=== PATIENT | female | born 1950 | race Caucasian/White ===

== ENCOUNTER 2017-02-13 08:41 | Observation (INO) | payer MEDICARE, OTHER ==
--- NOTE | 2017-02-13 08:51 | ERNOTE ---
Lower Extremity HPI - Narrative Date of Service: 02/13/17 - General Time Seen by Provider: 02/13/17 08:48 Source: patient Exam Limitations: no limitations - Immun/Allergies/Home Medications Immunizations: IMMUNIZATION HX Immunizations Up to Date Yes History of Influenza Vaccine Yes Hx Pneumococcal Vaccination Yes Allergies/Adverse Reactions: Allergies Allergy/AdvReac Type Severity Reaction Status Date / Time shellfish derived Allergy Verified 02/13/17 08:50 - History of Present Illness Narrative: patient was rushing down stairs when she fell from the last step onto her right ankle and now she has pain in right ankle/lower leg area. She was brought in by Ambulance Review of Systems - Review of Systems Constitutional: Present: no symptoms reported EYE: Present: no symptoms reported ENT: Present: no symptoms reported Respiratory: Present: no symptoms reported Cardiology: Present: no symptoms reported Gastrointestinal/Abdominal: Present: no symptoms reported Genitourinary: Present: no symptoms reported Musculoskeletal: Present: See HPI - Patient's Past Medical History Patient History - Medical: GERD Patient History - Cardiac/Respiratory: Hypertension, Hyperlipidemia Patient History - Cancer: No Hx of Cancer Patient History - Surgical Procedures: Cataracts, Hernia Repair Patient History - Other: None LMP (females 10-50): post - Social History Living Situations: home Abuse History: No History of abuse Psych History: No pertinent hx Smoking Status: Never smoker Alcohol Use: none Drug Use: none - Immunizations Immunizations Up to Date: Yes Hx Pneumococcal Vaccination: Yes History of Influenza Vaccine: Yes Physical Exam - Physical Exam General Appearance: Present: wd/wn, alert, no apparent distress Head Exam: Present: normal inspection Neck: Present: normal inspection, nontender Respiratory: Present: no respiratory distress, normal breath sounds, no accessory muscle use, chest nontender, lungs clear Cardiovascular/Chest: Present: regular rate, rhythm, no murmur, normal peripheral pulses Extremity Exam: Present: other - patient appears extremely tender in the distal tibial area laterally upon palpation. She is also very tender in the proximal lateral area of the right lower leg just distal to the knee joint. I do not see any ecchymoses. ED Progress - Results and Orders Patient's Lab Results:: I have reviewed the patient's lab results. - Vital Signs Patient's Vital Signs:: I have reviewed the patient's vital signs. Vital Signs: Vital Signs 02/13/17 08:44 Temperature 36.2 C L Pulse Rate 90 Respiratory 15 Rate Blood Pressure 142/75 O2 Sat by Pulse 96 Oximetry - X-Ray X-Ray #2 X-Ray: tibula/fibula - Progress/Reassessment Chief Complaint: Lower Extremity Pain/ Injury Plan - Plan Plan: Patient's x-ray reveal a distal tibial fracture and a proximal fibula fracture or the will be consulted in regards to this case. Departure Clinical Impression: Fracture tibia/fibula Qualifiers: Encounter type: initial encounter Fracture type: closed Laterality: right Qualified Code(s): S82.201A - Unspecified fracture of shaft of right tibia, initial encounter for closed fracture - Departure Disposition: [facility] Condition: Fair Referrals: Jose Milan MD [Primary Care Provider] -
[2017-02-13] MEDS ORDERED: ONDANSETRON HCL/PF 2 MG/ML VIAL ONE (09:05)
[2017-02-13] MEDS ORDERED: ONDANSETRON HCL/PF 2 MG/ML VIAL IV ONE (09:05)
[2017-02-13] MEDS ORDERED: HYDROmorphone HCL 1 MG/ML DISP.SYRIN ONE (09:23)
[2017-02-13] MEDS ORDERED: HYDROmorphone HCL 1 MG/ML DISP.SYRIN IV ONE (09:25)
[2017-02-13 09:26] LABS: Hematocrit 33.1 % (37.0-47.0); Hemoglobin 10.7 gm/dL (12.5-16.0); Mean Cell Volume 83.2 fl (78-100); Mean Corpuscular Hemoglobin 26.9 pg (27-31); Mean Corpuscular Hgb Conc 32.3 g/dl (32-36); Mean Platelet Volume 8.9 fl (6.0-9.5); Neutrophil # 9.2 K/mm3 (1.3-6.0); Platelet Count 247 K/mm3 (150-450); Red Blood Count 3.98 M/mm3 (4.2-5.4); Red Cell Distribution Width 15.5 % (11.5-14.0); White Blood Count 11.5 K/mm3 (4.0-10.5)
[2017-02-13 09:39] LABS: INR 1.04 INR (0.90-1.10); Prothrombin Time (Patient) 10.4 Seconds (9.0-11.0)
[2017-02-13 09:44] LABS: Albumin * 3.6 gm/dl (3.4-5.0); Anion Gap 14.1 mmol/L (6.8-13.8); BUN/Creatinine Ratio 16.3 (9.0-21.6); Bilirubin, Total 0.6 mg/dL (0.0-1.1); Ca. Corrected For Albumin 8.3 mg/dL (8.4-10.2); Calcium * 8.3 mg/dL (7.9-10.9); Carbon Dioxide 25.6 mmol/L (24-32.6); Potassium 3.7 mmol/L (3.4-4.6)
--- NOTE | 2017-02-13 12:20 | HP ---
Chief Complaint - Chief Complaint Date of Service: 02/13/17 Time of Service: 12:18 Chief Complaint: right lower leg pain History of Present Illness: Pt is a 66 y/o female with right lower leg pain. Patient reports that this morning she was going down a few steps when her left ankle gave way and then her right ankle rolled over. Pt fell down and had immediate pain in her right leg. Pt reports that she had no prior injuries to her lower extremities. Pt was brought to the ER by ambulance. Pt currently has 6/10 pain of her right lower extremity, no N/T. Pt has been placed in a splint of her RLE - Patient's Past Medical History Patient History - Medical: Anemia, GERD Patient History - Cardiac/Respiratory: Hypertension, Hyperlipidemia Patient History - Cancer: No Hx of Cancer Patient History - Surgical Procedures: Cataracts, Hernia Repair Patient History - Other: None LMP (females 10-50): post - Family History Mother Family History - Medical: , No pertinent hx Family History - Cardiac/Respiratory: Hypertension Family History - Cancer: Breast, Brain, Pancreatic Father Family History - Medical: No pertinent hx Family History - Cancer: No pertinent family hx - Social History Living Situations: spouse Abuse History: No History of abuse Psych History: No pertinent hx Smoking Status: Never smoker Have you smoked in the past 12 months: No Do you dip or chew tobacco: No Alcohol Use: none Drug Use: none - Immunizations Immunizations Up to Date: Yes Hx Pneumococcal Vaccination: Yes History of Influenza Vaccine: Yes Review Of Systems (GEN) - Review of Systems Generalized/Overall Review: Present: No Symptoms Reported Respiratory: Absent: Shortness of Breath Cardiac: Absent: Chest Pain Musculoskeletal: Present: Other - pain in right lower leg Allergies/Adverse Reactions: Allergies Allergy/AdvReac Type Severity Reaction Status Date / Time shellfish derived Allergy Verified 02/13/17 11:09 Home Medications: HOME MEDICATIONS Amlodipine Besylate 5 mg PO DAILY 02/13/17 [Last Taken Unknown] Atorvastatin Calcium 40 mg PO QPM 02/13/17 [Last Taken Unknown] Calcium Carb/Mag/Vitamin D3 [Coral Calcium 1,500 mg Cap] 1 each PO DAILY [Last Taken Unknown] Cholecalciferol (Vitamin D3) [Vitamin D3] 5,000 unit PO DAILY 02/13/17 [Last Taken Unknown] Famotidine [Pepcid] 40 mg PO HS 02/13/17 [Last Taken Unknown] Losartan Potassium [Cozaar] 50 mg PO DAILY 02/13/17 [Last Taken Unknown] Multivitamin with Minerals [Multivitamins with Minerals] 2 each PO DAILY [Last Taken Unknown] Omeprazole 40 mg PO DAILY 02/13/17 [Last Taken Unknown] Exam - Exam Vital Signs: Vital Signs - Last Taken Temp 36.7 C 02/13/17 11:21 Pulse 82 02/13/17 11:21 Resp 18 02/13/17 11:21 BP 140/65 02/13/17 11:21 Pulse Ox 96 02/13/17 11:21 Constitutional: Present: Alert, Oriented x3, Cooperative, No distress Respiratory: Present: normal breath sounds, no respiratory distress, No rales, No wheezing Cardiovascular/Chest: Present: regular rate, rhythm, no edema, no murmur Extremity: Present: other - RLE--> splint/bandage c/d/i, cap refill < 3 sec, SILT, 5/5 FHL/EHL,DF/PF Thoughts: Present: normal thought pattern Diagnostic Studies: Laboratory Results WBC 11.5 K/mm3 (4.0-10.5) H 02/13/17 09:21 RBC 3.98 M/mm3 (4.2-5.4) L 02/13/17 09:21 Hgb 10.7 gm/dL (12.5-16.0) L 02/13/17 09:21 Hct 33.1 % (37.0-47.0) L 02/13/17 09:21 MCV 83.2 fl (78-100) 02/13/17 09:21 MCH 26.9 pg (27-31) L 02/13/17 09:21 MCHC 32.3 g/dl (32-36) 02/13/17 09:21 RDW 15.5 % (11.5-14.0) H 02/13/17 09:21 Plt Count 247 K/mm3 (150-450) 02/13/17 09:21 MPV 8.9 fl (6.0-9.5) 02/13/17 09:21 Immature Gran % (Auto) 0.50 % (0.001-0.429) H 02/13/17 09:21 Immature Gran # (Auto) 0.06 K/mm3 (0.000-0.0310) H 02/13/17 09:21 Neutrophils % 80.0 % (42-75.0) H 02/13/17 09:21 Lymphocytes % 13.0 % (20-51) L 02/13/17 09:21 Monocytes % 5.3 % (0.0-9) 02/13/17 09:21 Eosinophils % 0.7 % (0.0-3.0) 02/13/17 09:21 Basophils % 0.5 % (0.0-1.0) 02/13/17 09:21 Nucleated RBC % 0.0 k/mm3 (0-1) 02/13/17 09:21 Neutrophils # 9.2 K/mm3 (1.3-6.0) H 02/13/17 09:21 Lymphocytes # 1.5 k/mm3 (1.5-3.5) 02/13/17 09:21 Monocytes # 0.6 k/mm3 (0.0-1.0) 02/13/17 09:21 Eosinophils # 0.1 k/mm3 (0.0-0.7) 02/13/17 09:21 Absolute Basophils 0.1 k/mm3 (0.0-0.1) 02/13/17 09:21 PT 10.4 Seconds (9.0-11.0) 02/13/17 09:21 INR (Anticoag Therapy) 1.04 INR (0.90-1.10) 02/13/17 09:21 Sodium 143 mmol/L (132-142) H 02/13/17 09:21 Plasma Sodium 143 mmol/L (130-142) H 02/13/17 09:21 Potassium 3.7 mmol/L (3.4-4.6) 02/13/17 09:21 Chloride 107 mmol/L (97-106) H 02/13/17 09:21 Carbon Dioxide 25.6 mmol/L (24-32.6) 02/13/17 09:21 Anion Gap 14.1 mmol/L (6.8-13.8) H 02/13/17 09:21 BUN 14 mg/dL (3-23) 02/13/17 09:21 Creatinine 0.86 mg/dL (0.4-1.4) 02/13/17 09:21 Est GFR (Non-Af Amer) 70 mL/min (60-130) 02/13/17 09:21 BUN/Creatinine Ratio 16.3 (9.0-21.6) 02/13/17 09:21 Random Glucose 104 mg/dL (70-110) 02/13/17 09:21 Calcium 8.3 mg/dL (7.9-10.9) 02/13/17 09:21 Calcium Adj for Albumin 8.3 mg/dL (8.4-10.2) L 02/13/17 09:21 Total Bilirubin 0.6 mg/dL (0.0-1.1) 02/13/17 09:21 AST 17 U/L (0-48) 02/13/17 09:21 ALT 21 U/L (19-67) 02/13/17 09:21 Alkaline Phosphatase 67 U/L (50-170) 02/13/17 09:21 Total Protein 7.0 gm/dL (6.2-8.2) 02/13/17 09:21 Albumin 3.6 gm/dl (3.4-5.0) 02/13/17 09:21 Assessment/Plan - Narrative Narrative: -66 y/o female with displaced spiral/oblique fracture of tibia, and fibula fractures - Discussed with patient conservative non-operative vs. surgical treatment of this condition including tibial cephalomedullary nailing vs. ORIF, discussed risk vs. benefits of surgical tx including, but not limited to infection, non- union fracture healing, bleeding, DVT, and stroke. Pt agreed and would like to proceed with surgical option. Pt has been admitted and will undergo surgery on 02/13/[address] Larry. Discussed with patient in detail the healing process of this surgical intervention. - Hgb 10.7 will continue to monitor daily - NPO - Pain control with IV morphine - DVT prophylaxis with SCDs - Assessment/Plan (1) Fracture tibia/fibula Problem: Acute Qualifiers: Encounter type: initial encounter Fracture type: closed Laterality: right Qualified Code(s): S82.201A - Unspecified fracture of shaft of right tibia, initial encounter for closed fracture; S82.401A - Unspecified fracture of shaft of right fibula, initial encounter for closed fracture; S82.401A - Unspecified fracture of shaft of right fibula, initial encounter for closed fracture
[2017-02-13] MEDS: MORPHINE SULFATE 2 MG/ML DISP.SYRIN IV PRN ×4 (12:28→23:07)
[2017-02-13] MEDS ORDERED: RINGER'S SOLUTION,LACTATED 1,000 ML IV ONE ×3 (14:05→16:15)
[2017-02-13] MEDS ORDERED: ceFAZolin SODIUM 1 GM VIAL IV ONE (14:25)
[2017-02-13] MEDS ORDERED: ACETAMINOPHEN 500 MG TABLET PO PRN (17:38)
[2017-02-13] MEDS ORDERED: diphenhydrAMINE HCL 50 MG/ML VIAL IV PRN (17:38)
[2017-02-13] MEDS ORDERED: PROMETHAZINE HCL 5 MG in DEXTROSE 5 % IN WATER 50 ML IV PRN ×2 (17:38)
[2017-02-13] MEDS ORDERED: MAG HYDROX/ALUMINUM HYD/SIMETH 30 ML UDC PO PRN (17:38)
[2017-02-13] MEDS ORDERED: MORPHINE SULFATE 2 MG/ML DISP.SYRIN IV PRN (17:38)
[2017-02-13] MEDS ORDERED: MAGNESIUM HYDROXIDE 30 ML UDC PO PRN (17:38)
[2017-02-13] MEDS ORDERED: NORMAL SALINE 1,000 ML IV PRN (17:41)
--- NOTE | 2017-02-13 17:52 | OR ---
Operative Report - Dictated Report Narrative: Date: 02/13/2017 Preoperative diagnosis: Right closed, displaced distal third tibial shaft fracture, segmental fibular shaft fracture. Postoperative diagnosis: Same Procedure: Closed reduction and intramedullary nailing of right tibial and fibular shaft fractures Surgeon: Stephan Larry M.D. Physical Aerodynamicist: Gee Frazier PA-C Anesthesia: Spinal Complications: None Specimens: Bone for disposal. Estimated blood loss: Minimal. Retained implants: [employer] 10 mm x 30 cm tibial nail with proximal and distal interlocking screws, 3.2 mm smooth Steinmann pin for the fibula Indications: Soren is a 66-year-old female who sustained a right right displaced distal tib-fib fracture after tripping and falling down some steps earlier today. She was initially seen in the [facility] ER where workup revealed the above injury. I counseled her on the need for surgical fixation given the displaced nature of her fracture. The risks, benefits, and alternatives were discussed including, but not limited to, , blood clots, bleeding, infection , nerve/tendon blood vessel/ injury, malunion/nonunion, postoperative limited range of motion, persistent pain, failure of implants, and need for additional procedures. Patient wished to proceed consent was obtained after answering all questions. Procedure: After marking the correct extremity on the floor, the patient was taken to the operating room. A timeout was performed. IV antibiotics consisting of 1 g of Ancef were administered prior to the procedure. A spinal anesthetic was induced by anesthesia. The patient was placed supine on a radiolucent table with all bony prominences well-padded and a bump was placed under the operative side buttock. SCDs and AMRIT hose were utilized on the nonoperative leg. A well-padded tourniquet was applied to the operative thigh. The operative leg was then pre-scrubbed with chlorhexidine and prepped and draped in a standard sterile fashion. We first turned our attention to the distal third tibia shaft fracture. Small incisions were made medially and laterally and blunt dissection was carried down to the level of the tibia both medially and laterally, being careful to protect the superficial peroneal nerve and the saphenous vein, in order to place periarticular reduction clamps. Traction and adduction of the hindfoot was utilized in the periarticular clamps were used to obtain near anatomic reduction. This was confirmed via fluoroscopy. With a tibia fracture reduced we turned attention to fixation of the fibula. We elected to fix this and intramedullary fashion with a smooth 3.2 mm Steinmann pin. This was advanced from the tip of the distal fibula across the fracture site and up into the more proximal shaft using the C-arm for guidance. The end of the pin was cut with a pin cutter and then driven further up into the fibula. We then turned our attention to the knee to prepare for nailing of the tibia. An approximately 4 cm longitudinal incision was made directly over the center of the patellar tendon. Blunt dissection was carried down to the level of the peritenon which was incised sharply. The patellar tendon was then split in line with its fibers at its midpoint away from the inferior patellar pole to the tibial plateau. A guidepin was then placed in the appropriate starting point using C-arm for guidance. The entry reamer was then advanced down over our guidepin. A ball-tipped guide eliel was then advanced down the intramedullary canal to a center-center position distally at the physeal scar. The tibia was sequentially reamed up to 11.5 mm and it was determined that a 10 mm diameter nail would be appropriate. This was measured to a length of 30 cm. The nail was then advanced down the intramedullary canal and fully seated distally under fluoroscopic guidance ensuring that we did not displace her fracture. The ball-tipped guide eliel was then removed and 2 proximal interlocking screws were placed through the interlocking screw guide. Next we placed 2 distal interlocking screws using a perfect circles technique, one screw medial to lateral and another screw anterior to posterior. The length and position of the screws was confirmed via fluoroscopy. At this point we also placed a medial Poller screw in the distal fragment to help maintain our reduction. At this point, final fluoroscopic images were taken confirming acceptable reduction of our fractures and good position of all implants. The wounds were all then copiously irrigated with normal saline and closed in layered fashion. The patellar tendon including the peritenon was closed in a running locking fashion with a 0 Vicryl. All subcutaneous tissue was closed with interrupted 3- 0 Vicryl and skin was closed with interrupted 4-0 nylon. Xeroform, 4 x 4's, Sof -Rol, and a full leg William wrap were applied and the patient was placed into a Cam Walker. All sponge, needle, blade, and instrument counts were correct prior to closing the wounds.
[2017-02-13] MEDS: oxyCODONE HCL/ACETAMINOPHEN 1 TAB TABLET PO PRN ×2 (19:42→21:25)
[2017-02-13] MEDS: ONDANSETRON HCL/PF 2 MG/ML VIAL IV PRN (19:59)
[2017-02-13] MEDS: ceFAZolin SODIUM 1 GM in DEXTROSE 5 % IN WATER 100 ML IV SCH ×2 (23:14)
[2017-02-13] MEDS: SENNOSIDES/DOCUSATE SODIUM 1 TAB TABLET PO SCH (23:20)
[2017-02-14] MEDS: MORPHINE SULFATE 2 MG/ML DISP.SYRIN IV PRN ×3 (00:18→03:15)
[2017-02-14] MEDS: oxyCODONE HCL/ACETAMINOPHEN 1 TAB TABLET PO PRN ×5 (01:30→19:35)
[2017-02-14] MEDS: ceFAZolin SODIUM 1 GM in DEXTROSE 5 % IN WATER 100 ML IV SCH ×4 (01:49→07:51)
[2017-02-14 06:42] LABS: Hematocrit 27.2 % (37.0-47.0); Hemoglobin 8.7 gm/dL (12.5-16.0); Mean Cell Volume 83.7 fl (78-100); Mean Corpuscular Hemoglobin 26.8 pg (27-31); Mean Platelet Volume 9.4 fl (6.0-9.5); Platelet Count 236 K/mm3 (150-450); Red Blood Count 3.25 M/mm3 (4.2-5.4); Red Cell Distribution Width 15.4 % (11.5-14.0); White Blood Count 9.5 K/mm3 (4.0-10.5)
[2017-02-14 07:01] LABS: Anion Gap 10.7 mmol/L (6.8-13.8); BUN/Creatinine Ratio 8.3 (9.0-21.6); Carbon Dioxide 26.4 mmol/L (24-32.6); Potassium 3.1 mmol/L (3.4-4.6)
[2017-02-14] MEDS: ONDANSETRON HCL/PF 2 MG/ML VIAL IV PRN ×2 (07:51→12:32)
--- NOTE | 2017-02-14 08:56 | PN ---
Subjective - Date and Time Seen Date: 02/14/17 Time: 08:15 Subjective Narrative: Pt reports no acute overnight events. Pt has had moderate nausea, been given dose of zofran. Pt pain is rated at 3/10 at her right mid lower leg. Objective - Vitals Vitals: Last Vital Signs Temp 36.4 C L 02/14/17 08:19 Pulse 86 02/14/17 08:19 Resp 14 02/14/17 08:19 BP 136/74 02/14/17 08:19 Pulse Ox 94 02/14/17 08:19 - Abnormal Lab Findings Abnormal Lab Findings: Abnormal Lab Results 02/14/17 02/14/17 Range/Units 05:40 05:40 RBC 3.25 L (4.2-5.4) M/mm3 Hgb 8.7 L (12.5-16.0) gm/dL Hct 27.2 L (37.0-47.0) % MCH 26.8 L (27-31) pg RDW 15.4 H (11.5-14.0) % Potassium 3.1 L (3.4-4.6) mmol/L BUN/Creatinine Ratio 8.3 L (9.0-21.6) Random Glucose 115 H (70-110) mg/dL - Exam Constitutional: Present: Alert, Cooperative, No distress Respiratory: Present: no respiratory distress Extremity: Present: other - RLE--> bandages c/d/i in CAM boot, SILT, cap refill < 3 sec, EHL/FHL 5/5 Cauti Physician Documentation - Urinary Catheter Management Urethral (Jackson) Date of Insertion: 02/13/17 Time of Insertion: 10:32 Date of Removal: 02/14/17 Time of Removal: 08:00 Assessment/Plan Plan Narrative: - 66 y/o female s/p closed reduction and intermedullary nailing of right tibia and fibula shaft fractures - Patient has been on observation to monitor pain control, as well as blood loss due to significance of fracture. Patient Hgb is currently 8.7 this is from prior to surgery 10.7. Will continue to monitor acute blood loss anemia post- operatively. Will re-evaluate patients ability to return home safely later today based upon her progress with physical therapy and reassessment of medical condition. Consider extending observation period due acute blood loss anemia and pain control. - Acute blood loss anemia Hgb 8.7 continue to monitor - Pain control with oral pain medications - Toe touch WB as tolerated with walker/crutches - PT/OT AROM of ankle, toe touch WB, progress as tolerated - PO diet as tolerated -DVT prophylaxis with lovenox, SCDs on unaffected leg - Problems/Diagnosis (1) Fracture tibia/fibula Problem: Acute Qualifiers: Encounter type: initial encounter Fracture type: closed Laterality: right Qualified Code(s): S82.201A - Unspecified fracture of shaft of right tibia, initial encounter for closed fracture; S82.401A - Unspecified fracture of shaft of right fibula, initial encounter for closed fracture; S82.401A - Unspecified fracture of shaft of right fibula, initial encounter for closed fracture (2) Postoperative anemia due to acute blood loss Problem: Acute
[2017-02-14] MEDS: ENOXAPARIN SODIUM 40 MG/0.4 ML SYRG SC SCH (16:34)
[2017-02-14] MEDS ORDERED: ATORVASTATIN CALCIUM 40 MG TABLET PO SCH (17:00)
[2017-02-14] MEDS ORDERED: FAMOTIDINE 20 MG TABLET PO SCH (21:00)
[2017-02-14] MEDS: SENNOSIDES/DOCUSATE SODIUM 1 TAB TABLET PO SCH (21:22)
[2017-02-15] MEDS: oxyCODONE HCL/ACETAMINOPHEN 1 TAB TABLET PO PRN ×3 (03:08→13:10)
[2017-02-15 06:19] LABS: Hemoglobin 8.4 gm/dL (12.5-16.0); Mean Cell Volume 82.8 fl (78-100); Mean Corpuscular Hemoglobin 26.8 pg (27-31); Mean Corpuscular Hgb Conc 32.3 g/dl (32-36); Mean Platelet Volume 9.1 fl (6.0-9.5); Platelet Count 215 K/mm3 (150-450); Red Blood Count 3.14 M/mm3 (4.2-5.4); Red Cell Distribution Width 15.4 % (11.5-14.0); White Blood Count 10.3 K/mm3 (4.0-10.5)
[2017-02-15 06:27] LABS: Anion Gap 8.9 mmol/L (6.8-13.8); BUN/Creatinine Ratio 8.6 (9.0-21.6); Calcium * 8.3 mg/dL (7.9-10.9); Estimated Creat Clear 61.7; Potassium 2.9 mmol/L (3.4-4.6)
[2017-02-15] MEDS ORDERED: PANTOPRAZOLE SODIUM 40 MG TABLET.EC PO SCH (07:00)
[2017-02-15] MEDS ORDERED: POTASSIUM CHLORIDE 20 MEQ TABLET.SA PO ONE ×3 (07:47→13:16)
[2017-02-15] MEDS ORDERED: MULTIVITAMIN/IRON/FOLIC ACID 1 TAB TABLET PO SCH (09:00)
[2017-02-15] MEDS ORDERED: LOSARTAN POTASSIUM 50 MG TABLET PO SCH (09:00)
[2017-02-15] MEDS ORDERED: CHOLECALCIFEROL 5,000 UNIT TABLET PO SCH (09:00)
[2017-02-15] MEDS ORDERED: amLODIPine BESYLATE 5 MG TABLET PO SCH (09:00)
[2017-02-15] MEDS ORDERED: CALCIUM CARBONATE/VITAMIN D3 1 TAB TABLET PO SCH (09:00)
[2017-02-15 12:48] LABS: Anion Gap 9.3 mmol/L (6.8-13.8); BUN/Creatinine Ratio 7.6 (9.0-21.6); Calcium * 8.8 mg/dL (7.9-10.9); Carbon Dioxide 30.9 mmol/L (24-32.6); Estimated Creat Clear 65.4; Potassium 3.2 mmol/L (3.4-4.6)
--- NOTE | 2017-02-15 13:33 | DS ---
(1) Fracture tibia/fibula Problem: Acute Qualifiers: Encounter type: initial encounter Fracture type: closed Laterality: right Qualified Code(s): S82.201A - Unspecified fracture of shaft of right tibia, initial encounter for closed fracture; S82.401A - Unspecified fracture of shaft of right fibula, initial encounter for closed fracture; S82.401A - Unspecified fracture of shaft of right fibula, initial encounter for closed fracture (2) Postoperative anemia due to acute blood loss Problem: Acute Description of Stay: Pt is a 66 y/o female who presented to [facility] ER on 02/13/17 with right lower leg pain. Pt was found to have a fracture of her right tibia and fibula. Patient was admitted under orthopedic care to undergo surgical treatment of tibia/ fibula fractures. Discussed with patient the conservative vs. surgical options patient elected to proceed with the surgical tx after reviewing the risk vs. benefits. On 02/13/17 patient underwent closed reduction with intermedullary nailing of tibia and fibula fractures. Pt surgery had no major complications patient was recovered and moved to the floor for observation. Pt has been on observation. She did have slight drop in hgb due to acute blood loss post- operatively. During time in observation she had some mild nausea that has been successfully treated with zofran and home medications. On post-op day #2, she had improvement decreased pain, has been up ambulating with PT with mild pain, also has been tolerating PO diet, with decreased PO pain medication requirements. Discussed discharge with patient to home health for continued PT and bandage changes. Pt will f/u at 2 weeks post-op in our outpatient clinic. Pt can call with any acute changes or questions. Procedures Performed: see notes below - intermedullary nailing of tibia and fibula fracture Results and Findings: Laboratory Last Values WBC 10.3 K/mm3 (4.0-10.5) 02/15/17 06:00 RBC 3.14 M/mm3 (4.2-5.4) L 02/15/17 06:00 Hgb 8.4 gm/dL (12.5-16.0) L 02/15/17 06:00 Hct 26.0 % (37.0-47.0) L 02/15/17 06:00 MCV 82.8 fl (78-100) 02/15/17 06:00 MCH 26.8 pg (27-31) L 02/15/17 06:00 MCHC 32.3 g/dl (32-36) 02/15/17 06:00 RDW 15.4 % (11.5-14.0) H 02/15/17 06:00 Plt Count 215 K/mm3 (150-450) 02/15/17 06:00 MPV 9.1 fl (6.0-9.5) 02/15/17 06:00 Immature Gran % (Auto) 0.50 % (0.001-0.429) H 02/13/17 09:21 Immature Gran # (Auto) 0.06 K/mm3 (0.000-0.0310) H 02/13/17 09:21 Neutrophils % 80.0 % (42-75.0) H 02/13/17 09:21 Lymphocytes % 13.0 % (20-51) L 02/13/17 09:21 Monocytes % 5.3 % (0.0-9) 02/13/17 09:21 Eosinophils % 0.7 % (0.0-3.0) 02/13/17 09:21 Basophils % 0.5 % (0.0-1.0) 02/13/17 09:21 Nucleated RBC % 0.0 k/mm3 (0-1) 02/13/17 09:21 Neutrophils # 9.2 K/mm3 (1.3-6.0) H 02/13/17 09:21 Lymphocytes # 1.5 k/mm3 (1.5-3.5) 02/13/17 09:21 Monocytes # 0.6 k/mm3 (0.0-1.0) 02/13/17 09:21 Eosinophils # 0.1 k/mm3 (0.0-0.7) 02/13/17 09:21 Absolute Basophils 0.1 k/mm3 (0.0-0.1) 02/13/17 09:21 PT 10.4 Seconds (9.0-11.0) 02/13/17 09:21 INR (Anticoag Therapy) 1.04 INR (0.90-1.10) 02/13/17 09:21 Sodium 141 mmol/L (132-142) 02/15/17 12:15 Plasma Sodium 141 mmol/L (130-142) 02/15/17 12:15 Potassium 3.2 mmol/L (3.4-4.6) L 02/15/17 12:15 Chloride 104 mmol/L (97-106) 02/15/17 12:15 Carbon Dioxide 30.9 mmol/L (24-32.6) 02/15/17 12:15 Anion Gap 9.3 mmol/L (6.8-13.8) 02/15/17 12:15 BUN 5 mg/dL (3-23) 02/15/17 12:15 Creatinine 0.66 mg/dL (0.4-1.4) 02/15/17 12:15 Est GFR (Non-Af Amer) 95 mL/min (60-130) 02/15/17 12:15 BUN/Creatinine Ratio 7.6 (9.0-21.6) L 02/15/17 12:15 Random Glucose 107 mg/dL (70-110) 02/15/17 12:15 Calcium 8.8 mg/dL (7.9-10.9) 02/15/17 12:15 Calcium Adj for Albumin 8.3 mg/dL (8.4-10.2) L 02/13/17 09:21 Total Bilirubin 0.6 mg/dL (0.0-1.1) 02/13/17 09:21 AST 17 U/L (0-48) 02/13/17 09:21 ALT 21 U/L (19-67) 02/13/17 09:21 Alkaline Phosphatase 67 U/L (50-170) 02/13/17 09:21 Total Protein 7.0 gm/dL (6.2-8.2) 02/13/17 09:21 Albumin 3.6 gm/dl (3.4-5.0) 02/13/17 09:21 Discharge Disposition: Home self care Disposition: Home self-care Condition: Fair Discharge Activity: Activity as tolerated, Other - Toe touch weight bearing Discharge Diet: General/regular food Senior Care Therapy: Physicial Therapy Referrals: Jose Milan MD [Primary Care Provider] - Print Language (Syriac or Sinhala Available): Syriac Prescriptions (Any new or edited meds): Enoxaparin Sodium [Lovenox] 40 mg SC Q24H #26 disp.syrin Ondansetron HCl [Zofran] 4 mg PO Q6H PRN #60 tablet PRN Reason: Nausea oxyCODONE HCL/ACETAMINOPHEN [Oxycodone-Acetaminophen 5-300] 1 each PO QID PRN # 60 tablet PRN Reason: surgery Complete Home Medications List: Complete Home Medication List: Amlodipine Besylate 5 mg PO DAILY 02/13/17 Atorvastatin Calcium 40 mg PO QPM 02/13/17 Calcium Carb/Mag/Vitamin D3 [Coral Calcium 1,500 mg Cap] 1 each PO DAILY Cholecalciferol (Vitamin D3) [Vitamin D3] 5,000 unit PO DAILY 02/13/17 Famotidine [Pepcid] 40 mg PO HS 02/13/17 Losartan Potassium [Cozaar] 50 mg PO DAILY 02/13/17 Multivitamin with Minerals [Multivitamins with Minerals] 2 each PO DAILY Omeprazole 40 mg PO DAILY 02/13/17 Enoxaparin Sodium [Lovenox] 40 mg SC Q24H #26 disp.syrin 02/15/17 Ondansetron HCl [Zofran] 4 mg PO Q6H PRN #60 tablet 02/15/17 oxyCODONE HCL/ACETAMINOPHEN [Oxycodone-Acetaminophen 5-300] 1 each PO QID PRN # 60 tablet 02/15/17
[2017-02-15 14:55] VITALS: BP 116/56
[2017-02-15] MEDS: ENOXAPARIN SODIUM 40 MG/0.4 ML SYRG SC SCH (15:47)
== END 2017-02-15 16:15 | disposition home health service (06) ==
LOC: ER 08:41 → MS 09:35 → INTOOBSV 09:35
PROVIDERS: ADMIT Orthopaedic Surgery; ATTEND Orthopaedic Surgery
PROC: 0QSG06Z Reposition Right Tibia with Intramedullary Internal Fixation Device, Open Approach (ICD-10-PCS; 2017-02-13)
PROC: 0QSJ06Z Reposition Right Fibula with Intramedullary Internal Fixation Device, Open Approach (ICD-10-PCS; principal; 2017-02-13 16:45)
DX: S82.301A Unspecified fracture of lower end of right tibia, initial encounter for closed fracture (principal); S82.831A Other fracture of upper and lower end of right fibula, initial encounter for closed fracture; D62 Acute posthemorrhagic anemia; R11.0 Nausea; I10 Essential (primary) hypertension; E78.5 Hyperlipidemia, unspecified
CPT/HCPCS: 27759; 36415; 73590; 73610; 73700; 76000; 80048; 80053; 85025; 85027; 85610; 93005; 96365; 96366; 96372; 96375; 96376; 97116; 97161; 97165; 97530; 99283; G0378; J2405